=== PATIENT | female | born 1940 | race Caucasian/White ===

== ENCOUNTER → 2016-04-17 | Day surgery (SDC) | payer MEDICARE ==
[~2016-04-17] MED LIST: ACETAMINOPHEN PO; ACETAMINOPHEN325 MG PO; ADVAIR 250-501 EACH INH; ADVAIR 2501 DISK W/D PO; ADVAIR INH; ALBUTEROL17 GM INH; ALPRAZOLAM; ALPRAZOLAM PO; AMITIZA8 MCG PO; AMITRYPTYLINE PO; ANEXSIA 7.5/3251 TA1 PO; ARISTOCORT A 0.15 GM TOP; AUGMENTIN PO; AZO CRANBERRY1 EACH PO; CENTRUM SILVER PO; CIPRO; CLINDAMYCIN HC300 MG PO; COLACE PO; CRANBERRY PO; CRESTOR PO; CYMBALTA PO; CYMBALTA20 MG PO; DEXILANT60 MG PO; DOLOBID500 MG PO; DULOXETINE HCL20 MG PO; DULOXETINE HCL60 M1 PO; EFFEXOR XR PO; ENTEX PSE1 CAP.SR . PO; FERRO-TIME325 MG PO; FERROUS SULFATE PO; FLEXERIL; FLEXERIL PO; FLEXERIL10 MG PO; GENTLE LAXATIVE10 MG PR; HYDROCODON-ACE1 EACH PO; IRON PO; LEVAQUIN750 MG PO; LINZESS145 MCG PO; MEDROL PO; MODAFINIL200 MG PO; MYRBETRIQ50 MG; NEURONTIN PO; NEURONTIN300 MG PO; NUVIGIL250 MG PO; PERCOCET5/325 PO; PREDNISOLONE5 MG PO; PRILOSEC PO; PRILOSEC40 MG PO; PROMETHAZINE HC25 MG PO; PROVIGIL; PROVIGIL PO; SINGULAIR; SYNTHROID; SYNTHROID PO; SYNTHROID125 PO; TRIPLE OMEGA 31 EACH PO; VESICARE PO; VICODIN 5/500 T1 TAB PO; VITAMIN D1000 UNI1 PO; XANAX0.5 M1 PO; XANAX0.5 MG PO; XOPENEX HFA15 GM IH; XOPENEX HFA15 GM NEB
--- NOTE | ~2016-04-17 | OR ---
Unit #: [id number] #: [id number] Patient: TYSON GOLDBERG [id number] [address] [place], [place] [address] [id number] O MR#: [id number] NAME: TYSON GOLDBERG ROOM: Date of Procedure: 04/17/2016 Admission Date: 04/17/2016 Surgeon: Maximo Crooks M.D. : 1940 Attending Physician: Maximo Crooks M.D. Primary Care Physician: Star Millan M.D. OPERATIVE REPORT PREOPERATIVE DIAGNOSIS Bladder cancer. POSTOPERATIVE DIAGNOSIS Bladder cancer. PROCEDURE PERFORMED Cystoscopy with TURBT, medium size tumors. DESCRIPTION OF PROCEDURE After informed consent, she was taken to the cystoscopy suite, placed under general anesthetic, positioned in lithotomy. Her vagina and perineum were prepped and draped in usual sterile fashion. Cystoscopy was performed showing multiple areas of recurrence. She had recurrence on the left posterior wall, which was a largest area. There was also an area of recurrence close to the bladder neck on the left side and another location close to the trigone on the left side. Using the 24-Honduran resectoscope, the resecting loop, the areas were resected without difficulty. Hemostasis was achieved using electrocautery. There was no perforation or injury to the bladder. At the end of the procedure, there was no active bleeding. Lidocaine jelly was placed inside the bladder for anesthetic. The patient will be taken to recovery and discharged home. Return to see me as an outpatient. She tolerated the procedure well. Dictated by... Chance Jones/eleonora TD: 04/18/2016 02:09 JOB #: [id number] OPERATIVE REPORT X Maximo Crooks MD X PROCEDURE OPERATIVE NOTE
--- NOTE | ~2016-04-17 | EKG ---
PATIENT: TYSON GOLDBERG UNIT #: [id number] Ventricular Rate: 69 BPM Atrial Rate: 69 BPM P-R Interval: 128 ms QRS Duration: 84 ms Q-T Interval: 404 ms QTC Calculation(Bezet): 432 ms P [place]: 57 degrees Calculated R [place]: 45 degrees Calculated T [place]: 65 degrees Diagnosis Line: Normal sinus rhythm Diagnosis Line: Normal ECG Diagnosis Line: When compared with ECG of 23-MAY-2015 17:49, Diagnosis Line: No significant change was found Diagnosis Line: Confirmed by JENNI TOTH MD ([id number]) on 04/17/2016 Diagnosis Line: 4:47:06 PM INTERPRETING MD: NAVNEET MEDEIROS
[2016-04-17 11:14] LABS: HEMATOCRIT 31.1 % (35.0-45.0); HEMOGLOBIN 10.5 gm/dL (12.0-16.0); MEAN CELL VOLUME 92.3 FL (83-96); MEAN CORPUSCULAR HEMOGLOBIN 31.3 PG (28-34); MEAN CORPUSCULAR HGB CONC 33.9 g/dL (30-36); MEAN PLATELET VOLUME 6.7 FL (6.5-11.5); RED BLOOD COUNT 3.37 X10e (3.90-5.30); RED CELL DISTRIBUTION WIDTH 12.8 % (11.0-15.5)
[2016-04-17 11:46] LABS: BUN/CREATININE RATIO 13.33; CALCIUM SERUM 8.7 mg/dL (8.4-10.2); CREATININE SERUM 1.5 mg/dL (0.6-1.4); POTASSIUM 4.1 mmol/L (3.5-5.1)
== END | disposition home or self-care (01) ==
LOC: CSUR 10:22
PROVIDERS: Urology
DX: C67.9 Malignant neoplasm of bladder, unspecified (principal); J44.9 Chronic obstructive pulmonary disease, unspecified; E03.9 Hypothyroidism, unspecified; F17.210 Nicotine dependence, cigarettes, uncomplicated; Z88.2 Allergy status to sulfonamides; Z88.8 Allergy status to other drugs, medicaments and biological substances; Z79.891 Long term (current) use of opiate analgesic; Z79.899 Other long term (current) drug therapy; Z90.5 Acquired absence of kidney; Z90.49 Acquired absence of other specified parts of digestive tract; Z90.89 Acquired absence of other organs; Z98.890 Other specified postprocedural states
CPT/HCPCS: 80048; 85027; 88307; 93005; J0330; J1956; J2250; J2405; J2710; J3010

== ENCOUNTER 2016-04-21 19:35 | Emergency (ER) | payer OTHER ==
--- NOTE | ~2016-04-21 | US140 ---
[facility] A Service of [facility] & [facility] RADIOLOGY TEXT RESULTS PATIENT: TYSON GOLDBERG LOCATION: SED : 40 UNIT #: [id number] AGE: [address]: Bethel Waldron MD SEX: F ORDER DR: [id number] [place] [id number] E MR#: [id number] Acc #: [id number] NAME: TYSON GOLDBERG : 1940 SEX: F STUDY DATE/TIME: 04/21/2016 20:03 UNIT: SED ROOM: STUDY DESCRIPTION: [facility] Stdy Attending Physician: Bethel Waldron M.D. Ordering Physician: Bethel Waldron M.D. Primary Care Physician: Star Millan M.D. MEDICAL IMAGING REPORT This report is preliminary unless electronic signature is present. EXAM Right upper extremity venous ultrasound HISTORY Right forearm pain for 5 days following IV removal. TECHNIQUE Venous ultrasound examination of the right upper extremity was performed using grayscale, spectral Doppler and color flow Doppler imaging. FINDINGS The examination is negative. There is no evidence of deep venous thrombus within the right internal jugular vein, subclavian vein, axillary vein or brachial veins. No superficial venous thrombus is seen within the cephalic or basilic veins. IMPRESSION Negative examination. No evidence of right upper extremity venous thrombosis. Dictated by... Alireza Jensen M.D. THIS IS AN ELECTRONICALLY VERIFIED REPORT Alireza Jensen M.D. at 04/22/2016 3:56 PM ANUSHKA/clarita TD: 04/22/2016 09:15 JOB #: [id number] MEDICAL IMAGING REPORT
[~2016-04-21 19:35] MED LIST changes: -CRANBERRY PO; -LINZESS145 MCG PO; -MYRBETRIQ50 MG
[2016-08-24] MEDS ORDERED: LINZESS145 MCG PO (15:22)
[2016-08-24] MEDS ORDERED: CRANBERRY PO (15:23)
== END 2016-04-21 20:53 | disposition home or self-care (01) ==
LOC: SED 19:35
DX: I80.8 Phlebitis and thrombophlebitis of other sites (principal); J44.9 Chronic obstructive pulmonary disease, unspecified
CPT/HCPCS: 93971; 99284

== ENCOUNTER 2016-06-03 22:59 | Emergency (ER) | payer OTHER ==
--- NOTE | ~2016-06-03 | CR63 ---
[facility] A Service of [facility] RADIOLOGY TEXT RESULTS PATIENT: TYSON GOLDBERG LOCATION: SED : 40 UNIT #: [id number] AGE: [address]: Bethel Waldron MD SEX: F ORDER DR: [id number] [place] [id number] E MR#: [id number] Acc #: [id number] NAME: TYSON GOLDBERG : 1940 SEX: F STUDY DATE/TIME: 06/03/2016 23:26 UNIT: SED ROOM: STUDY DESCRIPTION: CR Chest 2 View Attending Physician: Bethel Waldron M.D. Ordering Physician: Bethel Waldron M.D. Primary Care Physician: Star Millan M.D. MEDICAL IMAGING REPORT This report is preliminary unless electronic signature is present. EXAM PA and lateral chest HISTORY Fall a week ago with chest pain. TECHNIQUE Two views of the chest were obtained. COMPARISON STUDIES 08/26/2015. FINDINGS Heart size and vascularity are normal. Lungs are clear. The lungs are hyperinflated. The bones are unremarkable. IMPRESSION No active disease. Dictated by... Michel Grover M.D. THIS IS AN ELECTRONICALLY VERIFIED REPORT Michel Grover M.D. at 06/04/2016 1:59 AM FEL/pcl TD: 06/04/2016 00:40 JOB #: [id number] [facility] A Service of [facility] RADIOLOGY TEXT RESULTS PATIENT: TYSON GOLDBERG LOCATION: SED : 40 UNIT #: [id number] AGE: [address]: Bethel Waldron MD SEX: F ORDER DR: MEDICAL IMAGING REPORT Page 1 of 1
--- NOTE | ~2016-06-03 | CT52 ---
[facility] A Service [facility] RADIOLOGY TEXT RESULTS PATIENT: TYSON GOLDBERG LOCATION: SED : 40 UNIT #: [id number] AGE: [address]: Bethel Waldron MD SEX: F ORDER DR: [id number] [place] [id number] [id number] E MR#: [id number] Acc #: [id number] NAME: TYSON GOLDBERG : 1940 SEX: F STUDY DATE/TIME: 06/03/2016 23:22 UNIT: SED ROOM: STUDY DESCRIPTION: CT Cervical Spine Wo Cont Attending Physician: Bethel Waldron M.D. Ordering Physician: Bethel Waldron M.D. Primary Care Physician: Star Millan M.D. MEDICAL IMAGING REPORT This report is preliminary unless electronic signature is present. EXAM Cervical spine CT scan without contrast INDICATIONS Patient fell last week and hit head and has neck pain. TECHNIQUE Axial 2 mm images were obtained through the cervical spine and sagittal and coronal reconstructions were generated. This CT exam was performed with one or more of the following radiation dose reduction techniques: automatic exposure control, adjustment of mA and/or kV according to patient size, and iterative reconstruction. FINDINGS There is degenerative change of the facet joints and lower cervical spine. There is marked space narrowing at C5-C6 with some posterior osteophyte formation. There is also the space narrowing C6-C7. IMPRESSION 1. No evidence of fracture or acute injury. 2. Degenerative change. Dictated by... Michel Grover M.D. THIS IS AN ELECTRONICALLY VERIFIED REPORT Michel Grover M.D. at 06/04/2016 1:59 AM FEL/pcl [facility] A Service [facility] RADIOLOGY TEXT RESULTS PATIENT: TYSON GOLDBERG LOCATION: SED : 40 UNIT #: [id number] AGE: [address]: Bethel Waldron MD SEX: F ORDER DR: TD: 06/04/2016 00:37 JOB #: [id number] MEDICAL IMAGING REPORT Page 1 of 1
--- NOTE | ~2016-06-03 | CT71 ---
[facility] A Service [facility] RADIOLOGY TEXT RESULTS PATIENT: TYSON GOLDBERG LOCATION: SED : 40 UNIT #: [id number] AGE: [address]: Bethel Waldron MD SEX: F ORDER DR: [id number] [place] [id number] E MR#: [id number] Acc #: [id number] NAME: TYSON GOLDBERG : 1940 SEX: F STUDY DATE/TIME: 06/03/2016 23:19 UNIT: SED ROOM: STUDY DESCRIPTION: CT Head Wo Contrast Attending Physician: Bethel Waldron M.D. Ordering Physician: Bethel Waldron M.D. Primary Care Physician: Star Millan M.D. MEDICAL IMAGING REPORT This report is preliminary unless electronic signature is present. EXAM CT scan of the head without contrast INDICATIONS Dog pushed her down last week with head injury and headache. Patient fell last week. TECHNIQUE Unenhanced images were obtained through the brain and compared to 03/29/2016. This CT exam was performed with one or more of the following radiation dose reduction techniques: Automatic exposure control, adjustment of mA and/or kV according to patient size, and iterative reconstruction. FINDINGS There is fluid and/or mucosal thickening in both maxillary sinuses. No fracture is visible. The ventricles and subarachnoid spaces are normal. IMPRESSION The brain is normal. There is fluid and/or mucosal thickening in each maxillary sinus. Dictated by... Michel Grover M.D. THIS IS AN ELECTRONICALLY VERIFIED REPORT Michel Grover M.D. at 06/04/2016 1:59 AM FEL/psc TD: 06/04/2016 00:38 JOB #: [id number] [facility] A Service [facility] RADIOLOGY TEXT RESULTS PATIENT: TYSON GOLDBERG LOCATION: SED : 40 UNIT #: [id number] AGE: [address]: Bethel Waldron MD SEX: F ORDER DR: MEDICAL IMAGING REPORT Page 1 of 1
--- NOTE | ~2016-06-03 | CR181 ---
[facility]. [facility] A Service of [facility] & [facility] RADIOLOGY TEXT RESULTS PATIENT: TYSON GOLDBERG LOCATION: SED : 40 UNIT #: [id number] AGE: [address]: Bethel Waldron MD SEX: F ORDER DR: [id number] [place] [id number] E MR#: [id number] Acc #: [id number] NAME: TYSON GOLDBERG : 1940 SEX: F STUDY DATE/TIME: 06/03/2016 23:26 UNIT: SED ROOM: STUDY DESCRIPTION: CR Lumbar Spine 2 or 3 Views Attending Physician: Bethel Waldron M.D. Ordering Physician: Bethel Waldron M.D. Primary Care Physician: Star Millan M.D. MEDICAL IMAGING REPORT This report is preliminary unless electronic signature is present. EXAM Lumbar spine HISTORY Fall 6 days ago with pain in the lumbar spine. FINDINGS AP and lateral projections of the lumbar segment show good mineralization of both anterior and posterior elements. They are all anatomically normal without indication of fracture, dislocation, or malignant change of a sclerotic or lytic type. There is no congenital defect noted. The sacroiliac joints are normal. IMPRESSION Normal lumbar spine. Dictated by... Michel Grover M.D. THIS IS AN ELECTRONICALLY VERIFIED REPORT Michel Grover M.D. at 06/04/2016 1:59 AM FEL/pcl TD: 06/04/2016 00:39 JOB #: [id number] MEDICAL IMAGING REPORT Page 1 of 1
[2016-06-03 23:19] LABS: URINE SOURCE CLEAN CATCH
[2016-06-03 23:21] LABS: URINE APPEARANCE CLEAR; URINE BILIRUBIN NEG (NEG); URINE BLOOD TRACE-LYSED (NEG); URINE COLOR YELLOW; URINE GLUCOSE NEG (NORM); URINE KETONE NEG (NEG); URINE LEUKOCYTE ESTERASE NEG (NEG); URINE NITRATE NEG (NEG); URINE PH 5.5 (5-8); URINE PROTEIN NEG (NEG); URINE UROBILINOGEN 0.2 MG/DL (NORM)
[2016-06-03 23:22] LABS: MICRO INDICATED? YES
[2016-06-03 23:25] LABS: CULTURE INDICATED? NO; URINE BACTERIA NEG (NEG); URINE SQUAMOUS EPITHELIAL CELL OCCAS /[HPF]
[2016-08-24] MEDS ORDERED: LINZESS145 MCG PO (15:22)
[2016-08-24] MEDS ORDERED: CRANBERRY PO (15:23)
== END 2016-06-04 00:39 | disposition home or self-care (01) ==
LOC: SED 22:59
PROVIDERS: Emergency Medicine
DX: S06.0X0A Concussion without loss of consciousness, initial encounter (principal); S13.4XXA Sprain of ligaments of cervical spine, initial encounter; S33.5XXA Sprain of ligaments of lumbar spine, initial encounter; E87.6 Hypokalemia; E03.9 Hypothyroidism, unspecified; J44.9 Chronic obstructive pulmonary disease, unspecified; Z85.51 Personal history of malignant neoplasm of bladder; Z85.528 Personal history of other malignant neoplasm of kidney; Z79.899 Other long term (current) drug therapy; Z88.2 Allergy status to sulfonamides; Z88.8 Allergy status to other drugs, medicaments and biological substances; W17.89XA Other fall from one level to another, initial encounter; Y92.009 Unspecified place in unspecified non-institutional (private) residence as the place of occurrence of the external cause
CPT/HCPCS: 70450; 71020; 72100; 72125; 81003; 99284

== ENCOUNTER → 2016-09-04 | Day surgery (SDC) | payer OTHER ==
[~2016-09-04] MED LIST changes: +CRANBERRY PO; +LINZESS145 MCG PO; +MYRBETRIQ50 MG
--- NOTE | ~2016-09-04 | OR ---
Unit #: [id number] #: [id number] Patient: TYSON GOLDBERG [id number] [address] [address] [id number] O MR#: [id number] NAME: TYSON GOLDBERG ROOM: Date of Procedure: 09/04/2016 Admission Date: 09/04/2016 Surgeon: Maximo Crooks M.D. : 1940 Attending Physician: Maximo Crooks M.D. Primary Care Physician: Star Millan M.D. OPERATIVE REPORT PREOPERATIVE DIAGNOSIS History of bladder cancer. POSTOPERATIVE DIAGNOSIS History of bladder cancer. PROCEDURES PERFORMED Cystoscopy and transurethral resection for bladder tumor, large tumor. ANESTHESIA General. DESCRIPTION OF PROCEDURE After informed consent, the patient was taken to the cystoscopy suite, placed under general anesthetic, positioned in lithotomy. Her vagina and perineum were prepped and draped in the usual sterile fashion. A cystoscopy was performed. She had multiple areas of recurrence; some at the bladder neck, some at the trigone, some at the posterior wall, some more so to the left posterior wall. Using a 24-Kinyarwanda loop, the areas in question were resected. Her right ureteral orifice was visible and had efflux of clear urine. She did not have a very obvious left ureteral orifice. She had a history of prior left nephrectomy. The tumors were resected without difficulty. Hemostasis was achieved using electrocautery. At the end of the procedure, there was no active bleeding. The tumor fragments were evacuated and sent to pathology. Repeat inspection showed no active bleeding and no injury to the bladder. She had an intact right ureteral orifice with clear efflux of urine. Lidocaine jelly was placed inside the bladder and urethra for local anesthetic. The patient will be taken to recovery and will be discharged home. Return to see me as an outpatient for pathology report and followup. All counts were correct at the end of the procedure. Dictated by... Chance Jones/eleonora TD: 09/05/2016 16:18 JOB #: [id number] Unit #: [id number] #: [id number] Patient: TYSON GOLDBERG OPERATIVE REPORT Page 1 of 1 X Maximo Crooks MD PROCEDURE OPERATIVE NOTE
[2016-09-04 14:38] LABS: HEMATOCRIT 37.1 % (35.0-45.0); HEMOGLOBIN 12.4 gm/dL (12.0-16.0); MEAN CELL VOLUME 94.8 FL (83-96); MEAN CORPUSCULAR HEMOGLOBIN 31.6 PG (28-34); MEAN CORPUSCULAR HGB CONC 33.3 g/dL (30-36); MEAN PLATELET VOLUME 6.7 FL (6.5-11.5); RED BLOOD COUNT 3.92 X10e (3.90-5.30); RED CELL DISTRIBUTION WIDTH 12.5 % (11.0-15.5); WHITE BLOOD COUNT 3.9 X10e3 (4.0-10.5)
[2016-09-04 15:12] LABS: BUN/CREATININE RATIO 10.71; CREATININE SERUM 1.4 mg/dL (0.6-1.4); GLOM FILT RATE Estimated 36.4 mL/min (>60); POTASSIUM 3.9 mmol/L (3.5-5.1)
== END | disposition home or self-care (01) ==
LOC: CSUR 13:50
PROVIDERS: Urology
DX: C67.8 Malignant neoplasm of overlapping sites of bladder (principal); J43.9 Emphysema, unspecified; M19.90 Unspecified osteoarthritis, unspecified site; K21.9 Gastro-esophageal reflux disease without esophagitis; E03.9 Hypothyroidism, unspecified; Z79.899 Other long term (current) drug therapy; Z90.49 Acquired absence of other specified parts of digestive tract; Z98.890 Other specified postprocedural states; Z90.5 Acquired absence of kidney; Z88.2 Allergy status to sulfonamides; Z88.8 Allergy status to other drugs, medicaments and biological substances
CPT/HCPCS: 80048; 85027; 88307; J0360; J0690; J2405; J3010

== ENCOUNTER 2016-10-10 18:51 | Emergency (ER) | payer OTHER ==
[~2016-10-10] VITALS: Ht 167.6 cm; Wt 60.5 kg
--- NOTE | ~2016-10-10 | CR63 ---
[facility] A Service of [facility] & [facility] RADIOLOGY TEXT RESULTS PATIENT: TYSON GOLDBERG LOCATION: SED : 40 UNIT #: [id number] AGE: [address]: Bethel Waldron MD SEX: F ORDER DR: [id number] [place] [id number] E MR#: [id number] Acc #: [id number] NAME: TYSON GOLDBERG : 1940 SEX: F STUDY DATE/TIME: 10/10/2016 20:16 UNIT: SED ROOM: STUDY DESCRIPTION: CR Chest 2 View Attending Physician: Bethel Waldron M.D. Ordering Physician: Bethel Waldron M.D. Primary Care Physician: Star Millan M.D. MEDICAL IMAGING REPORT This report is preliminary unless electronic signature is present. EXAM Two-view chest, 10/10/2016 HISTORY 76-year-old female with chest pain and cough for 3 days. COMPARISON Chest, 06/03/2016 FINDINGS Two views of the chest demonstrate clear lungs. No pleural effusion or pneumothorax. Heart size and mediastinum are within normal limits. Pulmonary vasculature unremarkable. IMPRESSION No acute cardiopulmonary findings. Dictated by... Jim Barger M.D. THIS IS AN ELECTRONICALLY VERIFIED REPORT Jim Barger M.D. at 10/12/2016 10:51 AM Dariusz TD: 10/11/2016 20:30 JOB #: [id number] MEDICAL IMAGING REPORT Page 1 of 1
--- NOTE | ~2016-10-10 | EKG ---
PATIENT: TYSON GOLDBERG UNIT #: [id number] Ventricular Rate: 67 BPM Atrial Rate: 67 BPM P-R Interval: 126 ms QRS Duration: 92 ms Q-T Interval: 412 ms QTC Calculation(Bezet): 435 ms P [place]: 84 degrees Calculated R [place]: 7 degrees Calculated T [place]: 41 degrees Diagnosis Line: Normal sinus rhythm Diagnosis Line: Normal ECG Diagnosis Line: When compared with ECG of 17-APR-2016 10:51, Diagnosis Line: No significant change was found Diagnosis Line: Confirmed by VIKTORIA RODGERS MD ([id number]) on Diagnosis Line: 10/12/2016 1:50:36 PM INTERPRETING MD: ANA MARIA MEDEIROS
[~2016-10-10 18:51] MED LIST changes: -MYRBETRIQ50 MG
[2016-10-10] MEDS ORDERED: MYRBETRIQ50 MG (19:08)
[2016-10-10 19:50] LABS: BASOPHIL% 0.9 % (0-2.5); EOSINOPHIL# 0.4 X10e3 (0-0.7); EOSINOPHIL% 8.7 % (0.0-7.0); HEMATOCRIT 29.1 % (35.0-45.0); HEMOGLOBIN 10.1 gm/dL (12.0-16.0); LYMPHOCYTE# 1.3 X10e3 (1.0-3.5); LYMPHOCYTE% 28.6 % (17.0-45.0); MEAN CELL VOLUME 94.3 FL (83-96); MEAN CORPUSCULAR HEMOGLOBIN 32.8 PG (28-34); MEAN CORPUSCULAR HGB CONC 34.8 g/dL (30-36); MEAN PLATELET VOLUME 6.6 FL (6.5-11.5); MONOCYTE# 0.6 X10e3 (0-1.0); MONOCYTE% 12.2 % (3.0-12.0); NEUTROPHIL# 2.3 X10e3 (1.5-7.1); NEUTROPHIL% 49.6 % (40-75); PLATELET COUNT 199 X10e3 (140-420); RED BLOOD COUNT 3.09 X10e (3.90-5.30); RED CELL DISTRIBUTION WIDTH 12.8 % (11.0-15.5); WHITE BLOOD COUNT 4.6 X10e3 (4.0-10.5)
[2016-10-10 19:52] LABS: DIFF IND NO
[2016-10-10 19:54] LABS: POC - CKMB 2.1 ng/mL (0.0-7.9); POC - MYOGLOBIN 64.5 ng/mL (0.0-169.0)
[2016-10-10 19:55] LABS: POC - TROPONIN <0.05 ng/mL (<=0.05)
[2016-10-10 20:00] LABS: URINE SOURCE CLEAN CATCH
[2016-10-10 20:02] LABS: URINE APPEARANCE CLEAR; URINE BILIRUBIN NEG (NEG); URINE BLOOD TRACE-INTACT (NEG); URINE COLOR YELLOW; URINE GLUCOSE NEG (NORM); URINE KETONE NEG (NEG); URINE LEUKOCYTE ESTERASE NEG (NEG); URINE NITRATE NEG (NEG); URINE PROTEIN NEG (NEG); URINE SPECIFIC GRAVITY >=1.030 (1.003-1.035); URINE UROBILINOGEN 0.2 MG/DL (NORM)
[2016-10-10 20:05] LABS: ALBUMIN SERUM 3.4 g/dL (3.5-5.0); ALKALINE PHOSPHATASE 73 U/L (32-92); ALT (SGPT) 13 U/L (10-40); AST (SGOT) 17 U/L (10-42); BILIRUBIN,TOTAL 0.3 mg/dL (0.2-2.0); BLOOD UREA NITROGEN 21 mg/dL (9-23); BUN/CREATININE RATIO 19.09; CALCIUM SERUM 8.4 mg/dL (8.4-10.2); CARBON DIOXIDE 27 mmol/L (22-31); CHLORIDE 106 mmol/L (100-111); CREATININE SERUM 1.1 mg/dL (0.6-1.4); GLOM FILT RATE Estimated 48.7 mL/min (>60); GLUCOSE FASTING 114 mg/dL (70-110); LIPASE 42 U/L (22-51); POTASSIUM 3.7 mmol/L (3.5-5.1); PROTEIN TOTAL SERUM 6.6 g/dL (6.0-8.3); SODIUM 139 mmol/L (135-145)
[2016-10-10 20:06] LABS: MICRO INDICATED? YES
[2016-10-10 20:06] LABS: BILIRUBIN, DIRECT <0.1 mg/dL (0.0-0.2); BILIRUBIN,INDIRECT 0.2 mg/dL (0.0-0.9)
[2016-10-10 20:14] LABS: CULTURE INDICATED? YES; URINE BACTERIA NEG (NEG); URINE MUCUS PRESENT; URINE SQUAMOUS EPITHELIAL CELL FEW /[HPF]; URINE WBC 25-50 /[HPF] (0-5)
== END 2016-10-10 21:25 | disposition home or self-care (01) ==
LOC: SED 18:51
PROVIDERS: Emergency Medicine
DX: J40 Bronchitis, not specified as acute or chronic (principal); J44.9 Chronic obstructive pulmonary disease, unspecified; Z90.49 Acquired absence of other specified parts of digestive tract
CPT/HCPCS: 36415; 71020; 80048; 80076; 81003; 82553; 83690; 83874; 84484; 85025; 87086; 93005; 99284